=== PATIENT | female | born 1990 | race Caucasian/White ===

== ENCOUNTER 2017-10-17 00:07 | Emergency (ER) | payer SELFPAY ==
[2017-10-17 00:24] LABS: Lavender RECEIVED; Red RECEIVED
[2017-10-17 00:55] LABS: #Eosinphils 0.3 thou/uL (0.0-0.7); #Lymphocytes 2.6 thou/uL (1.20-3.40); #Monocytes 0.7 thou/uL (0.11-0.59); #Neutrophils 7.8 thou/uL (1.40-6.50); %Basophils 0.4 % (0.0-1.0); %Eosinophils 2.3 % (0.0-10.0); %Lymphocytes 22.6 % (21.0-51.0); %Monocytes 6.1 % (0.0-10.0); %Neutrophils 68.7 % (42.0-75.0); Hemoglobin 13.9 g/dL (12.0-16.0); Mean Corpuscular Hemoglobin 30.8 pg (27.0-31.0); Mean Corpuscular Volume 90.6 fl (81.0-99.0); Mean Platelet Volume 8.1 fL (7.4-10.4); Platelet Count 311 thou/uL (130-400); RBC Distribution Width 11.4 % (11.5-14.5); Red Blood Cell (RBC) Count 4.51 mill/uL (4.20-5.40); White Blood Cell (WBC) Count 11.4 thou/uL (4.8-10.8)
[2017-10-17 01:20] LABS: Anion Gap 13 mmol/L (10-20); BUN (Urea Nitrogen) 7 mg/dL (7.0-18.7); Calc. Creatinine Clearance 0 mL/min (70-130); Calcium 10.2 mg/dL (7.8-10.44); Carbon Dioxide 27 mmol/L (22-29); Chloride 104 mmol/L (98-107); Estimated GFR-MDRD 88; Glucose 103 mg/dL (70-105); Sodium 140 mmol/L (136-145)
[2017-10-17 02:46] LABS: Amphetamine Not Detected (NotDetected); Barbiturates Screen Not Detected (NotDetected); Benzodiazepine Screen Not Detected (NotDetected); Cocaine Metabolite Screen Not Detected (NotDetected); Medtox Control Line Valid? VALID (VALID); Medtox Reader # READER 1; Methadone Not Detected (NotDetected); Methamphetamine Not Detected (NotDetected); Opiate Screen Not Detected (NotDetected); Oxycodone Screen Not Detected (NotDetected); Phencyclidine (PCP) Not Detected (NotDetected); THC/Cannabinoid Screen Not Detected (NotDetected); Tricyclic Screen Not Detected (NotDetected)
--- NOTE | 2017-10-17 08:55 | CT ---
PRELIMINARY REPORT/[facility]/EMERGENCY AFTER HOURS PROCEDURE: EXAM: CT Head Without Intravenous Contrast EXAM DATE/TIME: 10/17/2017 12:55 AM CLINICAL HISTORY: 26 years old, female; Signs and symptoms; Other: Seizure; Patient HX: Er 12; F 26 presents to ed foll owing a seizure that she had at home. Pt reports a 2 day HX of seizure like activity that began at 01 00 on sunday. States that she awoke and her mouth was red, her neck was stiff and may have voided on herself. On sunday pt reports 3 similar episodes where she zoned out and lost consciousness. Was franky luated by her doctor and was told to come to the ed for further workup. Pt also reports blurred visio n since then initial episode. TECHNIQUE: Axial computed tomography images of the head/brain without intravenous contrast. COMPARISON: No relevant prior studies available. FINDINGS: Brain: No radiographic evidence for acute territorial infarct. No evidence for mass. No evidence for intracranial bleed. Ventricles: Unremarkable for patient age. Bones/joints: No acute findings. No acute fracture. Soft tissues: No acute findings. Sinuses: Moderate mucosal thickening in the sphenoid sinus, mild amount in the visualized right maxil larry sinus Mastoid air cells: No significant mastoid effusion. IMPRESSION: 1: No acute intracranial findings. 2: Moderate mucosal thickening in the sphenoid sinus, mild amount in the visualized right maxillary s inus. Consistent with changes from sinusitis Thank you for allowing us to participate in the care of your patient. Dictated and Authenticated by: Khoi Dangelo MD 10/17/2017 1:37 AM Central Time ([place] & [place]) FINAL REPORT NONCONTRAST HEAD CT: Date: 10/17/17 COMPARISON: 08/20/17. HISTORY: Seizure. FINDINGS: This report is in agreement with the preliminary report by Izzy. There is mucosal thickening of the l eft sphenoid sinus. No acute intracranial process. POS: [facility]
== END 2017-10-17 03:00 | disposition home or self-care (01) ==
LOC: ERS 00:07
DX: R56.9 Unspecified convulsions (principal); F41.9 Anxiety disorder, unspecified; F31.9 Bipolar disorder, unspecified; F17.210 Nicotine dependence, cigarettes, uncomplicated
CPT/HCPCS: 70450; 80048; 80306; 85025

== ENCOUNTER 2017-11-22 12:03 | Outpatient (CLI) | payer MEDICAID ==
[2017-11-22 12:56] LABS: BHCG - Serum POSITIVE (NEGATIVE); Pregs Control Background? CLEAR/WHITE (CLR/WHITE); Pregs Control Bar Appear? YES (CONTROL BAR)
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
== END 2017-11-22 12:04 | disposition home or self-care (01) ==
LOC: SCSMRI 12:03
PROVIDERS: ATTEND Psychiatry & Neurology Neurology
DX: R56.9 Unspecified convulsions (principal)
CPT/HCPCS: 36415; 70551; 84703

== ENCOUNTER 2018-04-21 21:06 | Day surgery (SDC) | payer OTHER ==
[2018-04-21 21:38] VITALS: BP 123/75; TEMP 98.9; BMI 32.2
[2018-04-21 22:07] LABS: Amnisure Internal Control QC ACCEPTABLE (ACCEPTABLE); Amnisure Test No Membranes Rupture (No Rupture)
--- NOTE | 2018-04-22 02:32 | SS ---
LABOR AND DELIVERY TRIAGE NOTE DATE OF EVALUATION: 04/21/2018 REGULAR PHYSICIAN: Dr. Brower at [facility]. EVALUATING PHYSICIAN: Clifford Templeton M.D. CHIEF COMPLAINT: Leakage of fluid at home. HISTORY OF PRESENT ILLNESS: Ms. Uribe is a 27-year-old white G3, P2-0-0-2 with an estimated date of confinement of 07/30/2018, who presents tonight with complaints of possible leakage of fluid since 6 this evening. She denies vaginal bleeding or uterine contractions. Her care has been at [facility] with Dr. Brower. PAST OBSTETRICAL HISTORY: Remarkable for 2 vaginal deliveries at term. PAST MEDICAL HISTORY: Anxiety, depression, migraine headaches, nystagmus, recent tooth abscess. PAST SURGICAL HISTORY: Umbilical hernia and cholecystectomy. CURRENT MEDICATIONS: vitamins and amoxicillin. ALLERGIES: No known allergies. SOCIAL HISTORY: She smokes, but she denies drug use. FAMILY HISTORY: Unremarkable. REVIEW OF SYSTEMS: Denies nausea, vomiting, fever or chills. PHYSICAL EXAMINATION: VITAL SIGNS: Stable and she is afebrile in triage tonight. ABDOMEN: Soft, gravid, nontender. PELVIC: Sterile speculum exam shows no pooling of fluid in the vagina. Sterile vaginal exam shows t he cervix to be closed and the presenting part high. heart tones are stable. There are no dec elerations. No regular uterine contractions are seen. LABORATORY DATA: AmniSure tonight returns negative. CLUB MANAGER-3 testing returns consistent with [place] a. ASSESSMENT: 1. A 25-week intrauterine . 2. No evidence of ruptured membranes. 3. Bacterial vaginosis. PLAN: The patient has been given a prescription for Flagyl 250 mg 1 p.o. t.i.d. for a week. She was given precautions regarding the Flagyl. She states that she has a followup appointment with Dr. Aquilino pack at [facility] in 3 weeks. She was given complete precautions. She was discharged in goo d condition.
== END 2018-04-21 23:32 | disposition home or self-care (01) ==
LOC: L&D/OP 21:06
PROVIDERS: ATTEND Obstetrics & Gynecology
DX: O99.89 Other specified diseases and conditions complicating pregnancy, childbirth and the puerperium (principal); N89.8 Other specified noninflammatory disorders of vagina; O99.342 Other mental disorders complicating pregnancy, second trimester; F41.9 Anxiety disorder, unspecified; F31.9 Bipolar disorder, unspecified; O99.352 Diseases of the nervous system complicating pregnancy, second trimester; G43.909 Migraine, unspecified, not intractable, without status migrainosus; O23.592 Infection of other part of genital tract in pregnancy, second trimester; O98.312 Other infections with a predominantly sexual mode of transmission complicating pregnancy, second trimester; B96.89 Other specified bacterial agents as the cause of diseases classified elsewhere; Z3A.25 25 weeks gestation of pregnancy; Z79.2 Long term (current) use of antibiotics; Z79.899 Other long term (current) drug therapy; Z88.8 Allergy status to other drugs, medicaments and biological substances
CPT/HCPCS: 84112; 87480; 87510; 87660; 99285

== ENCOUNTER 2018-05-07 18:29 | Emergency (ER) | payer OTHER ==
[2018-05-07] MEDS ORDERED: Promethazine HCl 25 MG/ML VIAL ONE (20:23)
[2018-05-07] MEDS ORDERED: Acetaminophen 325 MG TAB ONE (21:24)
== END 2018-05-07 22:06 | disposition home or self-care (01) ==
LOC: ERS 18:29
DX: O9A.213 Injury, poisoning and certain other consequences of external causes complicating pregnancy, third trimester (principal); S00.93XA Contusion of unspecified part of head, initial encounter; F31.9 Bipolar disorder, unspecified; F17.210 Nicotine dependence, cigarettes, uncomplicated; Z3A.28 28 weeks gestation of pregnancy; Z79.899 Other long term (current) drug therapy; W19.XXXA Unspecified fall, initial encounter
CPT/HCPCS: 96365; J2550

== ENCOUNTER 2018-05-09 18:33 | Day surgery (SDC) | payer OTHER ==
[2018-05-09 19:13] VITALS: BMI 32.2
[2018-05-09] MEDS ORDERED: Lactated Ringer's 1,000 ML IV SCH (20:45)
[2018-05-09] MEDS: Metoclopramide HCl 10 MG/2 ML VIAL IVP PRN ×3 (20:59→22:32)
[2018-05-09] MEDS: diphenhydrAMINE 50 MG/ML VIAL IVP PRN ×2 (21:00→22:00)
--- NOTE | 2018-05-09 23:28 | PRG ---
DATE OF SERVICE: 05/09/2018 CHIEF COMPLAINT: Fall and headache. HISTORY OF PRESENT ILLNESS: Patient is a 27-year-old G3, P2 female with an intrauterine at 28 weeks and 2 days who is presenting today after falling forward from the stairs of her camper yvette nd 3:30 this afternoon. Patient reports that she fell forward and was unsure if she missed a step or got dizzy. Patient reports that she hit her right side of her abdomen on the handle for a commode t hat was outside in front of her camper and then grabbed it before she fell forward any further. Klever daniel denies hitting her abdomen in full force. She does admit that the fall was not that intense. She does report that she has been having pain in the area where she hit and also some sharp stabbing mark anthony ns in her lower pelvis since the fall. In addition, patient reports that she has had for the last 3 days severe headache that she reports is the worst she has ever had since falling in the camper when her legs gave out and hitting her head on the handle to the oven and when further questioning her, betito gagnon denies or reports that the severity of the hit was not that intense but since then, she has bee n having a severe headache. She reports light sensitivity and sound sensitivity. She reports the he adache on that left side and also the back of her head. She does admit that she has a history of sunitha marlon and reports that this is her migrainous the worst migraine she has ever had. 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 PAST SURGICAL HISTORY: Umbilical hernia repair and a cholecystectomy. SOCIAL HISTORY: Patient reports about a half pack per day of tobacco use. Denies any other drug or alcohol use. ALLERGIES: She reports that she is allergic to ZOFRAN and has worsening of her anxiety with Tylenol. MEDICATIONS: vitamins. She had been taking Phenergan as needed for nausea and vomiting but has discontinued this since her last ER visit where she was told not to take anything sedating. OB LABS: Unavailable at time of dictation. REVIEW OF SYSTEMS: Patient denies fever. Reports fall per HPI. Denies chest pain. Reports some sh ortness of breath. She attributes to her and the position of the baby. Reports nausea and vomiting this week, again attributed to the . Denies any new rash. Denies diarrhea or con stipation. Denies hip problems. Patient reports she has had spotting on toilet paper when she went to the bathroom earlier today. She denies any spotting when she went to the bathroom here at the [facility]. PHYSICAL EXAMINATION: VITAL SIGNS: Blood pressure is 118/79, heart rate of 88, respiratory rate 18, temperature 98.1. GENERAL: She appears to be with a fairly flat affect and somewhat depressed mood. HEAD: Normocephalic, atraumatic. LUNGS: Clear to auscultation bilaterally. HEART: Regular rate and rhythm. ABDOMEN: Soft and gravid. She is tender in the right mid quadrant where she hit and is tender with palpation of her lower pelvis and deviation of the uterus. She reports that the pain is stabby and r eproduces part of her chief complaint. GENITOURINARY: Has been deferred at this time. heart tracing performed for a fall shows a fetus with baseline in the 120s with moderate long-t erm variability, positive 15 x 15 accelerations. Tocometer is not demonstrating any contractions at this time. ASSESSMENT AND PLAN: Patient is a 27-year-old female with an intrauterine at 20 weeks and 2 days status post fall approximately 5 hours ago. We will continue to monitor her until approximate ly 9:30. If she continues to have no contractions and fetus is reassuring, we can discontinue at meka t time. The patient is getting an IV and we will attempt a series of Reglan and Benadryl over the ne xt couple of hours at a rate of 10 mg of Reglan every 30 minutes p.r.n. for headache and 25 mg of Clifford adryl q.1 hour p.r.n. for headache again for the next 2 hours in an attempt to improve what sounds li ke a migraine. If the headache persists, given the patient's persistent complaint over the last [facility] visits and reporting the worst headache she has ever had, we will consider imaging of her head at that time to rule out any acute or subacute pathology. Mom also getting urinalysis to look for evid ence of urinary tract infection. Once results become available and have time to reevaluate after med ication for her headache, we will proceed.
[2018-05-09 23:47] LABS: Bilirubin Negative (Negative); Blood, Urine Negative (Negative); Clarity CLEAR (Clear); Glucose, Urine (Dipstick) Negative (Negative); Leukocyte Negative (Negative); Nitrite Negative (Negative); Protein, Urine (Dipstick) Negative (Neg-Trace); Urobilinogen 0.2 mg/dL (0.2-1.0); pH, Urine 6.5 (5.0-9.0)
[2018-05-09 23:48] LABS: Bacteria/HPF None Seen HPF (None Seen); Hyaline Casts/LPF 0-3 HYALINE CAST LPF (0-3 Hyaline); Pathc Cast-AUWi Flag 0.29 (0-2.49); RBC/HPF None Seen HPF (0-3); Squamous Epithelial 0-3 HPF (0-3); WBC/HPF 0-3 HPF (0-3)
--- NOTE | 2018-05-10 07:38 | ADD-PRG ---
ADDENDUM The patient has been monitored now for over 6 hours. She has been given her course of medications fo r suspected migraine and IV hydration. The patient has since reported that her migraine has resolved and she is feeling lot better. The patient denies any uterine contractions and would like to go janeen e. The patient has ride arranged to come get her. PHYSICAL EXAMINATION: VITAL SIGNS: Blood pressure 121/75, heart rate of 84, respiratory rate of 18, temperature 98.1. GENERAL: She appears to be in no acute distress. She has been given labor precautions and is being discharged to home. She has been encourage d to keep her next appointment with Dr. Brower in the next few days. Fetus has a category 1 tracing.
== END 2018-05-10 00:10 | disposition home or self-care (01) ==
LOC: L&D/OP 18:33
PROVIDERS: ATTEND Obstetrics & Gynecology
DX: O99.89 Other specified diseases and conditions complicating pregnancy, childbirth and the puerperium (principal); R51 Headache; Z3A.28 28 weeks gestation of pregnancy; Z88.1 Allergy status to other antibiotic agents
CPT/HCPCS: 81001; 96360; 96361; 96374; 96375; 96376; 99283; J1200; J2765

== ENCOUNTER 2018-06-20 21:43 | Day surgery (SDC) | payer OTHER ==
[2018-06-20 22:27] VITALS: BMI 32.8
[2018-06-20 22:34] VITALS: BP 118/71; TEMP 98.1
[2018-06-20] MEDS ORDERED: Acetaminophen 500 MG TAB PO PRN (23:45)
[2018-06-20] MEDS ORDERED: Lactated Ringer's 1,000 ML IV SCH (23:45)
[2018-06-21] MEDS ORDERED: Acetaminophen 500 MG TAB ONE (00:33)
--- NOTE | 2018-06-21 00:50 | PDOC.FPRHP ---
- History of Present Illness Chief Complaint: Ctx History of Present Illness: 27 yo @ 34.2 weeks presents for labor rule out. Pt reports starting to have painful ctx around 18:15. Reports ctx painful with pain being worse in her spine. Reported vaginal pressure as well. Pt reports ctx are 6-10 minutes apart. Pt took 2 extra strength tylenol around 19:00 but did not help with the pain. Pt reports not eating any dinner. Pt reports testing positive for gonorrhea last week and being tx. Pt also reports her 3hr GTT being inconclusive and she is currenlty taking her BG 4x a day. Reports most sugars have been above 150. Denies any recent illness. Denies any recent trauma or strain. +FM, +ctx, Denies LOF, denies vaginal bleeding. Reports nausea. Denies vomiting. Denies any increased urinary frequency or burning when peeing. Denies any vaginal discharge, irritation or itching. Denies any swelling. Denies any fever or chills. Reports headaches but states that they are a chronic problem. Pt is legally blind. - Allergies/Adverse Reactions Allergies Allergy/AdvReac Type Severity Reaction Status Date / Time acetaminophen [From Tylenol] Allergy Intermediate Anxiety Verified 06/20/18 22: 24 levetiracetam [From Keppra] Allergy Intermediate Hives Verified 06/20/18 22:36 ondansetron [From Zofran] AdvReac Nausea Verified 06/20/18 22:24 - Home Medications Medication Instructions Recorded Confirmed Type Vit,Calc76/Iron/Folic 1 tab PO DAILY 04/11/18 06/20/18 History [Pnv 29-1 Tablet] Metoclopramide HCl [Reglan] 5 mg PO BID PRN 06/20/18 06/20/18 History Comments: Pt reports not taking medications at this time. - History PMHx: Depression, Anxiety w/ panic attacks. Bipolar disorder, Legally Blind from eye condition POBhx: Previous term SVDx2, possible Gestational diabetes this , recent gonorrhea infection PSHx: Umbilical Hernia Repair and cholecystectomy (2017) ALLERGIES: Pt has tylenol listed as allergy yet reports taking it tonight without any issues. Social: 1/2 ppd tobacco use. Denies any alcohol or illicit substance use. - Review of Systems General: denies: fever/chills, fatigue Eyes: reports: vision changes (chronic legal blindess from unknown eye condition ) ENT: denies: nasal congestion, rhinorrhea Respiratory: denies: cough, shortness of breath Gastrointestinal: reports: nausea, abdominal pain. denies: vomiting, diarrhea, GI bleeding Genitourinary: denies: incontinence, dysuria, polyuria, discharge Skin: denies: rashes Musculoskeletal: reports: pain, tenderness (Lower spine). denies: stiffness, swelling Neurological: denies: numbness, weakness Psychological: reports: anxiety, depression - Vital signs BP: [118/71] HR: [92] RR: [18] Tmax: [98.1] - Physical Exam Constitutional: NAD, awake, alert and oriented, well developed HEENT: normocephalic and atraumatic, MMM Neck: supple, trachea midline Heart: RRR, normal S1/S2, no murmurs/rubs/gallops, pulses present, no edema Lungs: CTAB, no respiratory distress, good air movement, no rales/rhonchi, no wheezing, no retractions Abdomen: soft, non-tender, bowel sounds present, no masses/distention, other ( Gravid) -Abdomen: Umbilical hernia present Musculoskeletal: normal structure, normal tone Neurological: no focal deficit, normal sensation, DTRs 2+ Skin: no rash/lesions, capillary refill <2 seconds Heme/Lymphatic: no unusual bruising or bleeding Psychiatric: normal mood and affect -Psychiatric: Pt memory not fully intact. Could not recall full medical history. Most history obtained from friend in room. Additional comment: Vaginal Exam- Closed. FMR H&P: A/P - Problem List (1) Status: Acute Priority: High Qualifiers: Weeks of gestation: 34 weeks Qualified Code(s): Z3A.34 - 34 weeks gestation of (2) Round ligament pain Status: Acute Priority: Medium Code(s): N94.9 - UNSP COND ASSOC W FEMALE GENITAL ORGANS AND MENSTRUAL CYCLE (3) Hx of gonorrhea Status: Acute Priority: High Code(s): Z86.19 - PERSONAL HISTORY OF OTHER INFECTIOUS AND PARASITIC DISEASES Comment: Tx last week for gonnorhea (4) Depression Status: Chronic Code(s): F32.9 - MAJOR DEPRESSIVE DISORDER, SINGLE EPISODE, UNSPECIFIED (5) Anxiety Status: Chronic Code(s): F41.9 - ANXIETY DISORDER, UNSPECIFIED (6) Legally blind Status: Chronic Priority: Low Code(s): H54.8 - LEGAL BLINDNESS, DEFINED IN [place] - Plan 27 yo @ 34.2 weeks to rule out labor -FHT on monitor CAT 1 strip. Accels noted. No ctx noted or reported by pt during 15 minutes during hx. No ctx noted on strip. Continous monitoring. -Vaginal exam- Closed. Will check in a few hours and reassess. -Tylenol 1g for pain even though has allergy as she took tylenol earlier tonight without any problem. Advised to drink plenty of fluids. -U/A and VP3 ordered to check for possible infection. Recently tx for gonorrhea last week. hx Gonorrhea -tx last week. -Will have f/u with normal routine care for RODO Depression/Anxiety -Stable, not currently on meds. Attending Addendum - Attending Addendum Date/Time: 06/21/18 7508 I personally evaluated the patient and discussed the management with Dr. Thomas I agree with the History, Examination, Assessment and Plan documented above with any addition or exceptions noted below. Pt discharged home. No cervical change. Ligamentous pains. VP3 pending.
[2018-06-21 01:07] LABS: Bilirubin Negative (Negative); Blood, Urine Negative (Negative); Clarity CLEAR (Clear); Glucose, Urine (Dipstick) Negative (Negative); Leukocyte Negative (Negative); Nitrite Negative (Negative); Protein, Urine (Dipstick) Negative (Neg-Trace); Specific Gravity, Urine 1.015 (1.002-1.036); Urobilinogen 0.2 mg/dL (0.2-1.0); pH, Urine 6.5 (5.0-9.0)
--- NOTE | 2018-06-21 09:41 | PDOC.EVN ---
Event Note - Event Note Event Note: Follow up lab on 06/21/18 at 0940: VP3 checked: Positive for BV only. I called and left a message on the number on file ([phone]) to call [facility] L&D back at the L&D number given, for results and RX. Awaiting call back.
--- NOTE | 2018-06-21 10:48 | PDOC.EVN ---
Event Note - Event Note Event Note: 06/21/18: Patient called back: States already has Flagyl called in by her physician. Results given
== END 2018-06-21 01:25 | disposition home or self-care (01) ==
LOC: L&D/OP 21:43
PROVIDERS: ATTEND Obstetrics & Gynecology
DX: O47.03 False labor before 37 completed weeks of gestation, third trimester (principal); O99.89 Other specified diseases and conditions complicating pregnancy, childbirth and the puerperium; R10.2 Pelvic and perineal pain; H54.8 Legal blindness, as defined in USA; O99.343 Other mental disorders complicating pregnancy, third trimester; F41.9 Anxiety disorder, unspecified; F41.0 Panic disorder [episodic paroxysmal anxiety]; F31.9 Bipolar disorder, unspecified; O99.333 Smoking (tobacco) complicating pregnancy, third trimester; F17.210 Nicotine dependence, cigarettes, uncomplicated; O23.593 Infection of other part of genital tract in pregnancy, third trimester; B96.89 Other specified bacterial agents as the cause of diseases classified elsewhere; Z3A.34 34 weeks gestation of pregnancy; Z79.899 Other long term (current) drug therapy; Z88.8 Allergy status to other drugs, medicaments and biological substances
CPT/HCPCS: 36416; 51701; 81003; 87480; 87510; 87660; 99285

== ENCOUNTER 2018-06-28 18:13 | Day surgery (SDC) | payer OTHER ==
[2018-06-28 18:37] VITALS: BP 110/76; TEMP 98.4; BMI 32.8
--- NOTE | 2018-06-28 19:07 | PDOC.LDHP ---
Labor and Delivery H&P Chief complaint: loss of fluid HPI: Patient of Dr Fuller (currently out) CC: possible LOF at 35- 36 weeks Location: triage HPI: 27 yo at 35 weeks 2 days with possible LOF at 1645. No VB, few contractions. Sees Alina at [facility]. HX recent treatment for GC infection and BV. Notes good FM review of Systems: completed and as per HPI Current gestational age (weeks): 35 (2 days) Dating criteria: last menstrual period Grav: 3 Para: 2 OB History Details: x 2 Current complications: other (States 3 hr GTT was "not clear" so she is checking her sugars at home) Abnormal US findings: No Past Medical History: HX left eye blindness Current medications: pre- vitamins Previous surgical history: cholecystectomy, other (umbilical hernia repair) Allergies/Adverse Reactions: Allergies Allergy/AdvReac Type Severity Reaction Status Date / Time acetaminophen [From Tylenol] Allergy Intermediate Anxiety Verified 06/20/18 22: 24 levetiracetam [From Keppra] Allergy Intermediate Hives Verified 06/20/18 22:36 ondansetron [From Zofran] AdvReac Nausea Verified 06/20/18 22:24 Social history: tobacco use - Physical Exam Vital signs reviewed and normal: yes (110/68) General: NAD Heart: RRR Lungs: CTAB Abdomen: gravid FHT: category 1 [place] contractions every: irregualr - Assessment 25 weeks 2 days with possible LOF; recent DX and RX for BV and GC - Plan Plan: observation in L&D (We will check a VP3 (not sure if it will be back today ). Ordered amnisure. May do sterile spec exam if needed. Vaginal complaint may be due to recent BV HX. recent GC treatment so I will not recollect as it may still be positive based on time since last RX. monitors for now)
[2018-06-28 19:30] LABS: Amnisure Test No Membranes Rupture (No Rupture)
[2018-06-28 19:31] LABS: Amnisure Internal Control QC ACCEPTABLE (ACCEPTABLE)
--- NOTE | 2018-06-28 20:25 | PDOC.EVN ---
Event Note - Event Note Event Note: Amnisure was negative Suspect BV clinically VP3 pending [place] with some low amplitute contractions about every 3 minutes
--- NOTE | 2018-06-28 20:31 | PDOC.EVN ---
Event Note - Event Note Event Note: Exam was done by me: /-2/C/no evidence ROM Await VP3 Was RX'd for GC 2 weeks ago and has retest 06/15 1 Liter LR ordered for threatened PTL
[2018-06-28] MEDS ORDERED: Lactated Ringer's 1,000 ML IV SCH (20:45)
--- NOTE | 2018-06-28 21:00 | PDOC.EVN ---
Event Note - Event Note Event Note: VP3 with BP RX for flagul given to continue OK for outpatient management after the IVF bolus
== END 2018-06-28 21:30 | disposition home or self-care (01) ==
LOC: L&D/OP 18:13
PROVIDERS: ATTEND Obstetrics & Gynecology
DX: O99.89 Other specified diseases and conditions complicating pregnancy, childbirth and the puerperium (principal); N89.8 Other specified noninflammatory disorders of vagina; O60.03 Preterm labor without delivery, third trimester; O23.593 Infection of other part of genital tract in pregnancy, third trimester; B96.89 Other specified bacterial agents as the cause of diseases classified elsewhere; Z3A.35 35 weeks gestation of pregnancy; Z79.899 Other long term (current) drug therapy; Z88.8 Allergy status to other drugs, medicaments and biological substances
CPT/HCPCS: 84112; 87480; 87510; 87660; 96360; 99284

== ENCOUNTER 2018-07-02 18:52 | Day surgery (SDC) | payer OTHER ==
[2018-07-02 20:14] VITALS: BP 120/75; TEMP 98.8; BMI 32.8
--- NOTE | 2018-07-03 06:33 | SS ---
DATE OF ADMISSION: 07/02/2018 DATE OF DISCHARGE: 07/02/2018 LABOR AND DELIVERY TRIAGE NOTE REGULAR PHYSICIAN: Radha Brower DO EVALUATING PHYSICIAN: Lui Templeton MD CHIEF COMPLAINT: Contractions at home. HISTORY OF PRESENT ILLNESS: Ms. Uribe is a 27-year-old white G3, P2-0-0-2 with an estimated date of confinement of 07/30/2018, who presents complaining of uterine contractions at home that she believes are approximately every 10 minutes. She denies ruptured membranes, vaginal bleeding, or decreased movement. Her care has been with Dr. Brower. PAST OBSTETRICAL HISTORY: Two uncomplicated vaginal deliveries at term. PAST MEDICAL HISTORY: She reports being legally blind. PAST SURGICAL HISTORY: Cholecystectomy and umbilical hernia. CURRENT MEDICATIONS: 1. vitamins. 2. Reglan. 3. Recently given Flagyl for BV. ALLERGIES: TO TYLENOL WHICH SHE SAYS GIVES HER THE SHAKES. SOCIAL HISTORY: She denies tobacco, alcohol, or drug use. FAMILY HISTORY: Unremarkable. REVIEW OF SYSTEMS: She denies nausea, vomiting, fever, chills, ruptured membranes, or vaginal bleeding. PHYSICAL EXAMINATION: VITAL SIGNS: Stable. She is afebrile. ABDOMEN: Soft, nontender, and gravid. PELVIC: Shows the cervix to be fingertip thick with the presenting part high. heart rate tracing is stable. Good accelerations were seen. No decelerations were seen. Only an occasional uterine contraction is seen. ASSESSMENT: 1. 36-week intrauterine . 2. No evidence of active labor at this time. PLAN: The patient will be discharge to home with labor precautions. She was instructed to keep herself well hydrated at home. She was also told to complete her recent course of Flagyl for her diagnosis of BV. Job ID: [id number]
== END 2018-07-02 20:50 | disposition home or self-care (01) ==
LOC: L&D/OP 18:52
PROVIDERS: ATTEND Obstetrics & Gynecology
DX: O47.03 False labor before 37 completed weeks of gestation, third trimester (principal); Z3A.36 36 weeks gestation of pregnancy
CPT/HCPCS: 99282

== ENCOUNTER 2018-07-07 19:34 | Day surgery (SDC) | payer OTHER ==
[2018-07-07 20:14] VITALS: BMI 33.3
[2018-07-07 20:46] LABS: Amnisure Internal Control QC ACCEPTABLE (ACCEPTABLE); Amnisure Test No Membranes Rupture (No Rupture)
--- NOTE | 2018-07-08 09:46 | PRG ---
DATE OF SERVICE: 07/07/2018 OB ER ENCOUNTER: PRIMARY SPA COORDINATOR: Radha Brower DO, [facility]. CHIEF COMPLAINT: Leakage of fluid. HISTORY OF PRESENT ILLNESS: The patient is a 27-year-old, G3, P2 female with an intrauterine at 36 weeks and 6 days, who is presenting this morning with large leakage of fluid, which woke her up and caused significant wetting of her bed. She came here for evaluation. The patient reports that she continues to have pelvic and ligamentous pain, but this has been ongoing for several weeks now. She denies any fever, any vaginal bleeding, any urinary urgency or frequency. The patient denies headache, chest pain, shortness of breath, nausea, vomiting, or diarrhea. She has had constipation off and on. Denies any new rashes. PAST MEDICAL HISTORY: Significant for legal blindness, depression, anxiety with panic attack, and bipolar disorder. The patient is currently gestational diabetic and has recently been prescribed metformin. Also, the patient has a recent diagnosis of gonorrhoea, status post treatment. PAST SURGICAL HISTORY: She has had umbilical hernia repair and a cholecystectomy. ALLERGIES: TYLENOL DUE TO ADVERSE REACTION, SO SHE CONTINUES TO TAKE IT NEEDED. SOCIAL HISTORY: About a half pack of tobacco use per day. Denies alcohol or illicit drug use. OB LABS: Unavailable at the time of dictation. REVIEW OF SYSTEMS: As per HPI. PHYSICAL EXAMINATION: VITAL SIGNS: Blood pressure is 116/75, heart rate of 100, respiratory rate 18, saturating 100% on room air, and temperature 98.2. GENERAL: She appears to be in no acute distress. She is alert, oriented, cooperative, and pleasant to interact with. HEENT: Head; normocephalic, atraumatic. LUNGS: Clear to auscultation bilaterally. HEART: Has regular rate and rhythm. ABDOMEN: Soft, gravid, and nontender. EXTREMITIES: Nontender, nonedematous. LABORATORY DATA: AmniSure test has returned back negative. heart tracing shows the fetus to the baseline in the 130s with moderate long-term variability, positive 15 x 15 accelerations, no decelerations. Tocometer shows no significant contractions, possible irritability, but not felt by the patient. ASSESSMENT AND PLAN: The patient is a 27-year-old, G3, P2 female, well known by our service, who has presented with leakage of fluid. No evidence of rupture of membranes. The patient is being discharged to home. Fetus has a category I tracing and reactive NST. She has instructions to follow up with her primary OB as scheduled. Job ID: [id number]
== END 2018-07-07 21:05 | disposition home or self-care (01) ==
LOC: L&D/OP 19:34
PROVIDERS: ATTEND Obstetrics & Gynecology
DX: O99.89 Other specified diseases and conditions complicating pregnancy, childbirth and the puerperium (principal); N89.8 Other specified noninflammatory disorders of vagina; R10.2 Pelvic and perineal pain; H54.8 Legal blindness, as defined in USA; O24.415 Gestational diabetes mellitus in pregnancy, controlled by oral hypoglycemic drugs; O99.343 Other mental disorders complicating pregnancy, third trimester; F31.9 Bipolar disorder, unspecified; F41.9 Anxiety disorder, unspecified; O99.333 Smoking (tobacco) complicating pregnancy, third trimester; F17.210 Nicotine dependence, cigarettes, uncomplicated; Z3A.36 36 weeks gestation of pregnancy; Z79.84 Long term (current) use of oral hypoglycemic drugs; Z79.899 Other long term (current) drug therapy; Z88.8 Allergy status to other drugs, medicaments and biological substances
CPT/HCPCS: 84112; 99284

== ENCOUNTER 2018-07-19 17:46 | Inpatient (IN) | payer OTHER ==
[~2018-07-19 17:46] MED LIST: Bupivacaine/Epinephrine 0.25% 30 ML VIAL ONE
[2018-07-19 18:20] VITALS: BMI 33.2
[2018-07-19] MEDS ORDERED: Lidocaine 1% (PF) 30 ML VIAL SC PRN (18:36)
[2018-07-19] MEDS ORDERED: NS / Oxytocin 40 units/1000ml 1,000 ML IV PRN (18:36)
[2018-07-19] MEDS ORDERED: Promethazine HCl 25 MG/ML VIAL IM PRN (18:36)
[2018-07-19] MEDS ORDERED: Ibuprofen 800 MG TAB PO PRN (18:36)
[2018-07-19] MEDS ORDERED: Lactated Ringer's 1,000 ML IV SCH (18:45)
[2018-07-19] MEDS ORDERED: Dextrose 50% Abboject 50 ML SYRINGE SLOW IVP PRN (18:54)
[2018-07-19] MEDS ORDERED: HumaLOG 300 UNITS/3 ML VIAL SC PRN (18:54)
[2018-07-19] MEDS ORDERED: Dextrose 5% in Water 1,000 ML IV PRN (18:54)
[2018-07-19] MEDS: Lactated Ringer's 1,000 ML IV SCH (19:00)
[2018-07-19 19:04] LABS: Hemoglobin 11.9 g/dL (12.0-16.0); Mean Corpuscular HGB CONC 35.2 g/dL (32.0-36.0); Mean Corpuscular Hemoglobin 31.1 pg (27.0-31.0); Mean Corpuscular Volume 88.4 fL (78.0-98.0); Mean Platelet Volume 8.6 fL (7.4-10.4); Platelet Count 309 thou/uL (130-400); RBC Distribution Width 11.7 % (11.5-14.5); Red Blood Cell (RBC) Count 3.83 mill/uL (4.20-5.40); White Blood Cell (WBC) Count 14.7 thou/uL (4.8-10.8)
[2018-07-19 19:32] LABS: Hemoglobin A1c 5.7 % (4.0-6.0)
[2018-07-19 19:50] LABS: Hep B Surf Ag Non-Reactive S/CO (NonReactive); Syphilis Antibody Nonreactive (Nonreactive); Syphilis Antibody Index 0.04 S/CO (<1.00 Non-Reactive)
[2018-07-19] MEDS: Misoprostol 100 MCG TAB PO SCH (20:55)
[2018-07-19 21:23] LABS: ALT (SGPT) 12 U/L (8-55); AST (SGOT) 21 U/L (5-34); Albumin 3.3 g/dL (3.5-5.0); Alkaline Phosphatase 173 U/L (40-150); Anion Gap 10 mmol/L (10-20); BUN (Urea Nitrogen) 10 mg/dL (7.0-18.7); Bilirubin, Total 0.3 mg/dL (0.2-1.2); Calc. Creatinine Clearance 181 mL/min (70-130); Calcium 9.4 mg/dL (7.8-10.44); Carbon Dioxide 26 mmol/L (22-29); Chloride 102 mmol/L (98-107); Estimated GFR-MDRD Greater than 90; Globulin 4.2 g/dL (2.4-3.5); Glucose 95 mg/dL (70-105); Potassium 3.6 mmol/L (3.5-5.1); Protein, Total 7.5 g/dL (6.0-8.3); Sodium 134 mmol/L (136-145)
[2018-07-20] MEDS ORDERED: Butorphanol Tartrate 1 MG/ML VIAL SLOW IVP PRN (02:40)
[2018-07-20] MEDS ORDERED: Fentanyl 4 mcg/Bup 0.1% Cadd 100 ML ONE (04:09)
[2018-07-20] MEDS ORDERED: diphenhydrAMINE 50 MG/ML VIAL IVP PRN (04:42)
[2018-07-20] MEDS ORDERED: Promethazine HCl 25 MG/ML VIAL IM PRN (04:42)
[2018-07-20] MEDS ORDERED: Eucerin (Mineral Oil/Petrolatum,White) 30 gm Jar TOP PRN (04:42)
[2018-07-20] MEDS ORDERED: Lactated Ringer's 500 ML IV PRN (04:42)
[2018-07-20] MEDS ORDERED: ePHEDrine/0.9% NaCl/PF SYRINGE 50 mg/10 ml SLOW IVP PRN (04:42)
[2018-07-20] MEDS ORDERED: Naloxone HCl 0.4 mg/ml Vial IVP PRN ×2 (04:42)
[2018-07-20] MEDS ORDERED: Ondansetron PF 4 MG/2 ML Vial IVP PRN ×2 (04:42→15:07)
[2018-07-20] MEDS ORDERED: Fentanyl 4 mcg/Bupivacaine 0.1% Cassette 100 ML EPIDURAL SCH (04:45)
[2018-07-20] MEDS ORDERED: Communication Order-Pharmacy FS SCH (04:45)
[2018-07-20] MEDS: Lactated Ringer's 1,000 ML IV SCH ×2 (06:00)
[2018-07-20] MEDS ORDERED: metFORMIN 500 MG TAB PO SCH (08:00)
--- NOTE | 2018-07-20 08:34 | PDOC.OPDEL ---
OB Operative/Delivery Note Delivery Dr/Surgeon: Jeremie Figueroa Pre-Delivery Diagnosis: medically indicated induction Procedure/Post Delivery Dx: spontaneous vaginal delivery Weeks gestation: 38 Anesthesia: epidural - Findings A Sex: male - 1 min: 9 - 5 min: 9 - Additional Findings/Plan Placenta delivered: spontaneous Estimated blood loss: 154 mL Compilations/Other Findings: Delivering Physician: Carolina Attending: Jeremie Procedure: Spontaneous Vaginal Delivery Anesthesia: epidural EBL: 154 ml Pre-op Diagnosis: 1. Term intrauterine 2. Medically indicated IOL for A2GDM Post-op Diagnosis: 1. Term intrauterine , delivered 2. same as above Indications: A 27y/o female presents for medically indicated IOL for A2GDM Delivery Note: This is 27 yo F @ 38 wks who delivered a viable M infant at 7:38 on 07/20. Following an uneventful antepartum course, a vigorous male was delivered over an intact perineum in the occipitoanterior position. Anterior Shoulder and then remainder of the body delivered. Nuchal cord x1, reducible. The head was held down and mouth and nares were bulb suctioned. Cord clamped and cut and cord blood collected. Placenta delivered intact with a 3 vessel cord noted. Fundal massage was performed and the fundus was firm. The cervix and vagina were inspected and found to have a small right periurethral abrasion that was hemostatic. went to nursery in good condition for routine care. Apgars were 9/9 at 1 & 5 minutes, respectively. Patient tolerated delivery well and went to after routine recovery/care. Post delivery plan: routine recovery Addendum - Attending - Attending Attestation Date/Time: 07/25/18 1491 I was personally present and supervising the 2nd and 3rd stages of labor. I agree with the History, Examination, Assessment and Plan documented above with any addition or exceptions noted below.
[2018-07-20] MEDS ORDERED: Milk Of Magnesia 30 ML UDCUP PO PRN (15:07)
[2018-07-20] MEDS ORDERED: Preparation H Ointment 28 GM TUBE PR PRN (15:07)
[2018-07-20] MEDS ORDERED: Bisacodyl 10 MG SUPP PR PRN (15:07)
[2018-07-20] MEDS ORDERED: diphenhydrAMINE 25 MG CAP PO PRN (15:07)
[2018-07-20] MEDS ORDERED: Benzocaine/Menthol 20-0.5% 60 ML CAN TOP PRN (15:07)
[2018-07-20] MEDS ORDERED: NS / Oxytocin 40 units/1000ml 1,000 ML IV SCH (15:07)
[2018-07-20] MEDS ORDERED: Adacel (T-DAP) 0.5 ML SYRINGE IM ONE (15:07)
[2018-07-20] MEDS ORDERED: Lanolin Ointment 7 GM TUBE TOP PRN (15:07)
[2018-07-20] MEDS ORDERED: Docusate Calcium (SURFAK) 240 MG CAP PO SCH (15:30)
[2018-07-20] MEDS ORDERED: Prenatal Vitamin 1 TAB PO SCH (15:30)
[2018-07-20] MEDS: Ibuprofen 800 MG TAB PO SCH ×2 (15:34→21:45)
[2018-07-20] MEDS: Misoprostol 100 MCG TAB PO SCH ×2 (19:14→19:15)
[2018-07-20] MEDS: Ferrous Sulfate 325 MG TAB PO SCH (19:16)
[2018-07-20] MEDS: Docusate Calcium (SURFAK) 240 MG CAP PO SCH (21:45)
--- NOTE | 2018-07-21 00:20 | PDOC.PP ---
Post Progress Note Post Day #: PPD#1 Subjective: Sleepy, no complaints. PO intake tolerated: yes Flatus: yes Ambulation: yes Vital Signs (12 hours) Temp Pulse Resp BP Pulse Ox 07/20/18 20:00 97.8 F 92 16 130/81 99 07/20/18 18:01 98.0 F 83 18 123/72 07/20/18 15:00 98.2 F 86 20 134/82 Weight Weight 96.162 kg - Physical Examination General: NAD Respiratory: non-labored breathing Abdominal: no distention Neurological: no gross focal deficits Psychiatric: normal affect Result Diagrams: 07/19/18 18:45 07/19/18 20:55 Additional Labs: Post Labs Blood Type AB POSITIVE 07/19/18 18:45 Hep Bs Antigen Non-Reactive S/CO (NonReactive) 07/19/18 18:45 - Assessment/Plan Routine PP care. Has FBS ordered for AM, possible DC late PM.
[2018-07-21] MEDS: Ibuprofen 800 MG TAB PO SCH ×3 (05:27→21:10)
[2018-07-21] MEDS: Ferrous Sulfate 325 MG TAB PO SCH ×2 (09:43→17:43)
[2018-07-21] MEDS: Prenatal Vitamin 1 TAB PO SCH (09:45)
[2018-07-21] MEDS: Docusate Calcium (SURFAK) 240 MG CAP PO SCH ×2 (09:46→21:11)
[2018-07-21] MEDS ORDERED: Measles/Mumps/Rubella 10 MCG/0.5 ML VIAL SC ONE (16:00)
--- NOTE | 2018-07-21 21:16 | PDOC.EVN ---
Event Note - Event Note Event Note: 07/21/2018 at 21:10 Received call from nurse that patient was outside talking on phone and stepped into hole, twisting her left ankle. She had to call for assistance and has difficulty bearing weight. Patient rates the pain as a 8/10. On exam, ankle is minimally swollen. There is some echymosis on lateral aspect of foot and surrounding lateral malleolus. Pain with dorsiflexion > plantarflexion. Pain with inversion. Patient is uncertain if she inverted her ankle or everted it as mechanism of injury. She did state she heard a popping sound and had immediate pain. She has had torn ligaments in that ankle in the past. Patient has significant tenderness to palpation at distal aspect of lateral malleolus. She is unable to bear weight. Ankle is currently elevated and being iced. We will order an ankle xray to further evaluate for any fractures. Conservative management in the meantime. Antionette Figueroa, DO PGY-2 <Antionette Figueroa - Last Filed: 07/21/18 21:11> Attending Addendum - Attending Addendum Date/Time: 07/22/18 0632 I personally evaluated the patient and discussed the management with Dr. Figueroa. I agree with the History, Examination, Assessment and Plan documented above. <Zhanna Truong - Last Filed: 07/22/18 06:32>
--- NOTE | 2018-07-21 22:26 | RAD ---
RADIOGRAPH LEFT ANKLE THREE VIEWS: DATE: 07-21-18 TIME: 9:40 P.M. HISTORY: 27-year-old female with traumatic left ankle pain due to fall. FINDINGS: Ankle mortise is congruent. No subluxation or fracture identified. Mild degenerative changes at the a nterior aspect of the ankle mortise as seen on the lateral view. IMPRESSION: No fracture. POS: JIN
[2018-07-22] MEDS: Ibuprofen 800 MG TAB PO SCH (05:55)
[2018-07-22 08:00] VITALS: BP 124/74; TEMP 98.7
[2018-07-22] MEDS: Docusate Calcium (SURFAK) 240 MG CAP PO SCH (10:02)
[2018-07-22] MEDS: Ferrous Sulfate 325 MG TAB PO SCH (10:02)
[2018-07-22] MEDS: Prenatal Vitamin 1 TAB PO SCH (10:04)
== END 2018-07-22 11:30 | disposition home or self-care (01) | DRG 807 ==
LOC: L&D 17:46 → 3SW 07-20 15:17
PROVIDERS: ADMIT Obstetrics & Gynecology; ATTEND Obstetrics & Gynecology
PROC: 10E0XZZ Delivery of Products of Conception, External Approach (ICD-10-PCS; principal; 2018-07-20)
PROC: 10907ZC Drainage of Amniotic Fluid, Therapeutic from Products of Conception, Via Natural or Artificial Opening (ICD-10-PCS; 2018-07-20)
DX: O24.425 Gestational diabetes mellitus in childbirth, controlled by oral hypoglycemic drugs (principal); Z37.0 Single live birth; Z79.899 Other long term (current) drug therapy; O99.344 Other mental disorders complicating childbirth; Z3A.38 38 weeks gestation of pregnancy; O69.81X0 Labor and delivery complicated by cord around neck, without compression, not applicable or unspecified; H54.8 Legal blindness, as defined in USA; O75.89 Other specified complications of labor and delivery; Z79.84 Long term (current) use of oral hypoglycemic drugs; M25.572 Pain in left ankle and joints of left foot; X50.1XXA Overexertion from prolonged static or awkward postures, initial encounter
CPT/HCPCS: 36415; 36416; 51702; 80053; 83036; 85027; 86780; 86850; 86900; 86901; 87340; 90707; J0595

== ENCOUNTER 2018-08-18 13:13 | Observation (INO) | payer OTHER ==
[2018-08-18] MEDS ORDERED: Dexamethasone 10 MG/ML VIAL ONE (13:54)
[2018-08-18] MEDS ORDERED: Morphine 4 MG/ML VIAL ONE (14:30)
[2018-08-18] MEDS ORDERED: Nicotine 14 MG PATCH TD SCH (16:30)
[2018-08-18 17:56] VITALS: BMI 30.4
[2018-08-18] MEDS: Clindamycin/D5W 600 MG in Premix Bag 1 BAG IVPB SCH ×2 (18:43→23:32)
[2018-08-18] MEDS: Famotidine 20 MG TAB PO SCH (20:10)
[2018-08-18] MEDS: Ketorolac Tromethamine 30 MG/ML VIAL IVP PRN (20:12)
--- NOTE | 2018-08-18 20:45 | HP ---
PRIMARY CARE PHYSICIAN: [facility]. CHIEF COMPLAINT: Right-sided mouth and jaw swelling and pain. HISTORY OF PRESENT ILLNESS: Ms. Uribe is a pleasant 27-year-old female with a past medical history of anxiety and depression, bipolar disorder, tobacco abuse, who has been transferred to [facility] for right-sided facial swelling that started late last night. She had reported a migraine about 2 days ago and had noticed the right side of her face swelling up late last night. She states that it is quite painful to chew and tender to touch over the right side of her face. She denies any fever or chills. No trouble breathing or trouble swallowing. She denies any chest pain, shortness of breath, or abdominal pain. She was given IV morphine and IV dexamethasone in the ER, she had reported some mild nausea after morphine dose, but otherwise denies any nausea or vomiting. She states the pain is 4/10 currently, however, it was 8/10 before morphine. In the ER, there was attempted I and D; however, this was unsuccessful as small amount of blood was discharged. She reports being treated for diabetes, however, when she gave to her son a little over 1-1/2 months ago, this had resolved and she was taken off metformin. She states that since then, she has no problems. She also reports being legally blind in left eye. Her initial workup included labs, which showed an elevated white count of 15.8, and alkaline phosphatase of 173. CT of facial bone did show extensive inflammatory change involving the soft tissues of the right perimandibular region, not iatrogenic in nature. Posterior to the mandibular teeth demonstrate periapical abscess formation and there is a gingival based abscess along the outer cortex of the mandible at the level of the ankle on the right. She was also given IV Phenergan 12.5 for nausea along with IV clindamycin 600 mg. Plan is to admit the patient for further observation and workup of her symptoms, Oral Surgery Dr. Matthew was consulted for further evaluation. REVIEW OF SYSTEMS: All other systems reviewed and found to be negative unless mentioned in the HPI. PAST MEDICAL HISTORY: Legally blind in left eye, history of diabetes while with her son, however, has since resolved. PAST SURGICAL HISTORY: Hernia repair and cholecystectomy. PSYCHIATRIC HISTORY: Does report anxiety and depression along with bipolar disorder. SOCIAL HISTORY: She does report smoking half a pack of cigarettes per day, denies any alcohol use or any further illicit drug use. KNOWN ALLERGIES: Acetaminophen, levetiracetam, codeine, and Zofran. CURRENT HOME MEDICATIONS: 1. Iron 325 mg oral daily. 2. She used to take Zoloft, however, has not taken that in over a month and half. PHYSICAL EXAMINATION: VITAL SIGNS: Blood pressure 148/96, pulse 70, respirations 19, temperature 98.9, and O2 saturations 97% on room air. GENERAL: The patient is awake, alert, and oriented x3, mild acute distress noted due to pain. HEENT: Atraumatic. She has moderate right-sided facial swelling, which is tender to palpation around the right side of the mandible. Swelling of the right buccal mucosa and right gums without focal area of fluctuance noted. Multiple dental caries noted. Moist mucous membranes noted. NECK: Cervical adenopathy noted. Tender to palpation. Trachea midline. RESPIRATORY: Clear to auscultation bilaterally. No wheezes, no rhonchi, no rales. CARDIOVASCULAR: Positive S1 and S2. Regular rate and rhythm. No murmur auscultated. ABDOMEN: Soft, nontender. Bowel sounds present. Nondistended. BACK: Full range of motion. Normal inspection, no tenderness. MUSCULOSKELETAL: Strength 5+ bilaterally in upper and lower extremities. Pedal pulses palpable. Moves all extremities equal. No edema noted. NEUROLOGIC: Cranial nerves 2 through 12 intact except for diminished sight in left eye. Gait is not assessed. Speech is intact. SKIN: Warm, dry, and intact. No lesions. No ulcerations noted. LABORATORY DATA: WBC 51.8, RBC 4.56, hemoglobin 13.2, platelets 326, and neutrophils 12.4. Sodium 139, potassium 3.8, anion gap 14, BUN 9, creatinine 0.82, estimated GFR 84, and glucose 104. DIAGNOSTIC IMAGING: CT of facial bones showed extensive inflammatory change involving the soft tissue in the right perimandibular region, odontogenic in nature. Posterior to mandibular teeth demonstrate periapical abscess formation, and there is a gingival based abscess along the outer cortex of the mandible at the level of the angle on the right. ASSESSMENT AND PLAN: 1. Right-sided facial swelling, likely secondary to periodontal abscess. Check blood cultures, continue IV clindamycin. Oral Surgery consulted for further evaluation, Dr. Blundell. The patient received IV Decadron in the ER, and swelling has been improved since then. Monitor labs and await culture results. 2. Iron deficiency, continue on the patient's home iron supplement. 3. Leukocytosis, likely secondary to #1. 4. History of anxiety and depression with bipolar disorder, she has not taken her home dose of Zoloft in over a month, we will hold for now and just monitor the patient symptomatically. 5. Deep vein thrombosis and gastrointestinal prophylaxis. 6. Code status, full code. DISPOSITION: Pending culture results, the patient's progress, and clinical findings. Job ID: [id number]
[2018-08-19] MEDS: Ketorolac Tromethamine 30 MG/ML VIAL IVP PRN (04:48)
[2018-08-19] MEDS: Clindamycin/D5W 600 MG in Premix Bag 1 BAG IVPB SCH (04:48)
[2018-08-19 06:46] LABS: #Lymphocytes 1.4 thou/uL (1.20-3.40); #Monocytes 1.1 thou/uL (0.11-0.59); #Neutrophils 15.7 thou/uL (1.40-6.50); %Basophils 0.2 % (0.0-1.0); %Eosinophils 0.2 % (0.0-10.0); %Lymphocytes 7.6 % (21.0-51.0); %Monocytes 6.2 % (0.0-10.0); %Neutrophils 85.9 % (42.0-75.0); Hemoglobin 11.9 g/dL (12.0-16.0); Mean Corpuscular HGB CONC 33.7 g/dL (32.0-36.0); Mean Corpuscular Hemoglobin 29.4 pg (27.0-31.0); Mean Corpuscular Volume 87.2 fL (78.0-98.0); Mean Platelet Volume 8.1 fL (7.4-10.4); Platelet Count 321 thou/uL (130-400); RBC Distribution Width 11.1 % (11.5-14.5); Red Blood Cell (RBC) Count 4.04 mill/uL (4.20-5.40); White Blood Cell (WBC) Count 18.3 thou/uL (4.8-10.8)
[2018-08-19 07:09] LABS: Anion Gap 16 mmol/L (10-20); BUN (Urea Nitrogen) 11 mg/dL (7.0-18.7); Calc. Creatinine Clearance 152 mL/min (70-130); Calcium 8.7 mg/dL (7.8-10.44); Carbon Dioxide 21 mmol/L (22-29); Chloride 106 mmol/L (98-107); Estimated GFR-MDRD 90; Glucose 134 mg/dL (70-105); Potassium 3.6 mmol/L (3.5-5.1); Sodium 139 mmol/L (136-145)
[2018-08-19] MEDS ORDERED: Ferrous Sulfate 325 MG TAB PO SCH (08:00)
[2018-08-19 08:01] VITALS: BP 131/77; TEMP 98.3
--- NOTE | 2018-08-19 08:13 | CON ---
DATE OF CONSULTATION: 08/19/2018 HISTORY OF PRESENT ILLNESS: This is a 27-year-old female with a longstanding history of dental pain and tooth problems. The patient has a several day history of ongoing increasing right perimandibular swelling associated with painful tooth #30. The patient was seen at [place] [facility], incision and drainage was attempted without significant success, and patient was subsequently transferred to the [facility] for further care. PAST MEDICAL HISTORY: Anxiety, depression, and legal blindness. PAST SURGICAL HISTORY: Cholecystectomy, umbilical hernia repair. MEDICATIONS: Iron. ALLERGIES: TYLENOL, ZOFRAN, KEPPRA. SOCIAL HISTORY: Positive for half pack a day cigarettes. REVIEW OF SYSTEMS: Positive for dental pain and swelling to the right face region. Negative for dyspnea, dysphagia, or odynophagia. Positive for decreased appetite and decreased p.o. intake secondary to discomfort. Otherwise, review of systems is negative. PHYSICAL EXAMINATION: GENERAL: Alert and oriented x3, no apparent distress. HEENT: Face and oral cavity, the patient has [id number] edema and swelling of the right perimandibular region. This swelling appears to be all superior to inferior . Bilateral submandibular spaces were soft and normal. is relatively normal with soft floor of mouth. Oropharynx is within normal limits, widespread advanced decay with significant tenderness to digital manipulation of tooth #30. Intraorally, the patient has significant right buccal vestibular swelling and edema with positive fluctuance. Unable to definitively determine where the previous incision and drainage attempt was located at. NECK: Trachea is midline. No significant or notable edema, cellulitis, or swelling to bilateral neck. LUNGS: The patient is breathing without difficulty. No signs of pulmonary abnormality. LABORATORY DATA: White blood cell count 15,000. CT scan of the face from the outside hospital shows significant decays associated with tooth #30 and a large periapical radiolucency with notable bony destruction in that area. The patient also has right edema and changes consistent with swelling in the right perimandibular tissues on the CT scan with localized abscess along with buccal cortex of the mandible in the body region with fluid collection staying superior to the inferior border of the mandible. ASSESSMENT: 1. Right mandibular-vestibular abscess in the mandibular body region. 2. Decayed and infected tooth #30. PLAN: 1. Plan per the emergency room physician is to keep the patient in the hospital overnight, admit to the hospitalist team for IV antibiotics, decadron, and pain control. 2. The patient needs procedure to remove tooth #30 and incision and drainage of the perimandibular abscess. Based on clinical and radiographic evaluation, this appears to be a case where we would treat on an outpatient basis and plan from my standpoint is that the patient should be discharged to my office first thing tomorrow morning with plan for removal of tooth and drainage of abscess with intravenous sedation. The patient should be kept n.p.o. after midnight. 3. These plans have been discussed with the patient and reviewed my instructions with her as well. I will verbally indicate this plan with the hospitalist team as well. Job ID: [id number]
[2018-08-19] MEDS: Famotidine 20 MG TAB PO SCH (08:43)
--- NOTE | 2018-08-19 17:44 | DIS ---
DATE OF ADMISSION: 08/18/2018 DATE OF DISCHARGE: 08/19/2018 CHIEF COMPLAINT: Right lower dental pain and right facial swelling for one day. CONSULTING PHYSICIAN: Clifford Matthew DDS, MD, Oral Surgery. DISCHARGE DIAGNOSES: 1. Right mandibular vestibular abscess in the mandibular body region. 2. Decayed and infected tooth, #30. HOSPITAL COURSE: This is a 27-year-old woman with a longstanding history of dental problems, who presented with acute right facial swelling and right mandibular tooth pain. She was experiencing significant pain with chewing and noted tenderness to the right side of her face. The patient denies having any fevers or chills. Also, denies any difficulty with her swallowing or with breathing. She presented to the ER and was given morphine for pain and started on IV dexamethasone. She had an attempted I and D, which was unsuccessful. She underwent CT imaging of the facial bones showing extensive inflammatory change involving the soft tissues of the right perimandibular region. Posterior to the mandibular teeth, she was noted to have a periapical abscess formation with gingival base abscess along the outer cortex of the mandible at the level of the angle on the right. The patient was started on IV antibiotics with clindamycin and referred to Oral Surgery. When seen by Dr. Matthew during her hospital stay, she was recommended to have incision and drainage of the perimandibular abscess and removal of tooth #30. Following review of her imaging studies, it was felt she was a candidate for treatment as an outpatient. She was cleared for discharge this morning and kept n.p.o. after midnight with plans to have followup with Dr. Matthew today. I did confirm with Dr. Matthew's staff that the patient would be seen immediately after discharge. On day of discharge, the patient states she is feeling better with regard to the amount of swelling involving the face. She had been experiencing suborbital pain and swelling, which has significantly improved. She now is having a little bit more swelling in the right submandibular region. Denies any difficulty swallowing. Denies any difficulty with her breathing. She is eager for discharge, so she may proceed with the I and D. She has remained afebrile. The white count has slightly increased and she has been given 2 doses of clindamycin. The leukocytosis may be associated more so with the steroids she has been on. The patient was cleared for discharge home. REVIEW OF SYSTEMS: She denies having any nausea or vomiting. Denies having any headaches or dizziness. No chest pain, palpitations, or shortness of breath. No abdominal pain. No urinary symptoms. No bowel changes. All other review of systems apart from those mentioned in the hospital course are negative. PHYSICAL EXAMINATION: VITAL SIGNS: Temperature 98.3, pulse 66, respirations 18, O2 saturation 96% on room air, and blood pressure 131/77. HEENT: Normocephalic and atraumatic. Pupils are equal, round, and reactive to light. Sclerae are anicteric. Oropharynx without any significant swelling or occlusion of the posterior pharynx. No uvula deviation. No significant erythema or edema in the posterior pharynx. Notable right facial swelling, per the patient, significantly improved. Bilateral nystagmus present. The patient states that this is long-standing. NECK: Supple. LUNGS: Clear to auscultation bilaterally. CARDIAC: Regular rhythm without audible murmurs, rubs, or gallops. ABDOMEN: Soft, nontender, and nondistended with bowel sounds present. EXTREMITIES: No clubbing, cyanosis, or edema. NEUROLOGIC: Alert and oriented x3. LABORATORY DATA: White blood count 18.3, hemoglobin 11.9, hematocrit 35.2, and platelets 321. Sodium 139, potassium 3.6, BUN 11, creatinine 0.77, and GFR 90. IMAGING DATA: Facial bone CT, 08/18/2018: Extensive inflammatory change involving with the soft tissues in the right perimandibular region, odontogenic in nature. Posterior to mandibular teeth demonstrates periapical abscess formation and there is a gingival base abscess along the outer cortex of the mandible at the level of the angle on the right. DISCHARGE MEDICATIONS: 1. Prescription given for clindamycin 450 mg p.o. every 6 hours for 7 days. 2. Prescription given for famotidine 20 mg p.o. b.i.d. 3. Prescription given for Toradol 10 mg p.o. every 6 hours as needed for pain. The patient was advised to resume home medications. CONDITION: Stable at discharge. ACTIVITY: As tolerated. DIET: Continue n.p.o. until seen by Dr. Matthew for I and D today. FOLLOWUP: 1. Follow up with Dr. Matthew as scheduled immediately after discharge. 2. Follow up with primary care physician. DISPOSITION: Discharged home with plans to follow up immediately after discharge with Dr. Matthew for I and D of perimandibular abscess. The patient was discussed with Dr. Dowd, who agrees with the plan of care as described above. Job ID: [id number]
== END 2018-08-19 10:39 | disposition home or self-care (01) ==
LOC: ERS 13:13 → ERHOLD 14:07 → T4-A 17:45
PROVIDERS: ADMIT Internal Medicine; ATTEND Internal Medicine
DX: M27.2 Inflammatory conditions of jaws (principal); K04.7 Periapical abscess without sinus; K02.9 Dental caries, unspecified; D72.829 Elevated white blood cell count, unspecified; F31.9 Bipolar disorder, unspecified; F41.9 Anxiety disorder, unspecified; F17.210 Nicotine dependence, cigarettes, uncomplicated; H54.8 Legal blindness, as defined in USA; Z79.899 Other long term (current) drug therapy; Z88.5 Allergy status to narcotic agent; Z88.8 Allergy status to other drugs, medicaments and biological substances
CPT/HCPCS: 36415; 80048; 85025; 87040; 96361; 96365; 96366; 96374; 96375; 96376; G0378; J1100; J1885; J2270; J3490